=== PATIENT | male | born 1990 | race Caucasian/White ===

== ENCOUNTER 2020-02-03 08:56 | Emergency (ER) | payer MEDICAID ==
[~2020-02-03] VITALS: Ht 177.8 cm; Wt 85.0 kg
--- NOTE | 2020-02-03 09:00 | NUR ---
NO ANSWER WHEN CALLED FROM [facility]
[2020-02-03 09:22] VITALS: BP 124/78
[2020-02-03] MEDS ORDERED: LIDOCAINE-MPF 1%, 5ML ONE (09:27)
[2020-02-03] MEDS ORDERED: LIDOCAINE-MPF 1%, 5ML INFIL ONE (10:00)
[2020-02-03] MEDS ORDERED: NEOSPORIN OINT. PKT 1 PACKET ONE (11:05)
== END 2020-02-03 11:32 | disposition home or self-care (01) ==
LOC: ED 09:33
DX: S61.212A Laceration without foreign body of right middle finger without damage to nail, initial encounter (principal); X58.XXXA Exposure to other specified factors, initial encounter; Y93.89 Activity, other specified; Y92.098 Other place in other non-institutional residence as the place of occurrence of the external cause; Y99.8 Other external cause status
CPT/HCPCS: 99283